=== PATIENT | male | born 1995 | race American Indian/Alaskan Native ===

== ENCOUNTER 2021-01-03 01:56 | Emergency (ER) | payer SELFPAY ==
[2021-01-03 02:23] VITALS: BP 131/79
--- NOTE | 2021-01-03 03:12 | XRay Report ---
. XR forearm LT INDICATION / CLINICAL INFORMATION: fall COMPARISON: None available. FINDINGS/IMPRESSION: No acute fracture or malalignment. No focal soft tissue abnormality. Signer Name: Jv Issa MD Signed: 01/03/2021 3:08 AM Workstation Name: [id number]
--- NOTE | 2021-01-03 04:07 | Emergency Department Report ---
ED Fall HPI - General Chief Complaint: Extremity Injury, Upper Stated Complaint: POSS BROKEN LT ELBOW Time Seen by Provider: 01/03/21 03:52 Source: patient, EMS Mode of arrival: Ambulatory - History of Present Illness MD Complaint: fall (Was playing basketball and fell on the asphalt striking his forearm/elbow down complaining of pain to the elbow region since that time. Dull throbbing pain) Loss of Consciousness: none Prolonged Down Time?: no Symptoms Prior to Fall: none Location - Extremities: Left: Elbow - Related Data Previous Rx's Medication Instructions Recorded Last Taken Type Acetaminophen/Codeine [Tylenol 1 tab PO Q6H PRN #20 tab 01/03/21 Unknown Rx /Codeine # 3 tab] Allergies Allergy/AdvReac Type Severity Reaction Status Date / Time No Known Allergies Allergy Unverified 01/03/21 02:16 ED Review of Systems ROS: Stated complaint: POSS BROKEN LT ELBOW Other details as noted in HPI Comment: All other systems reviewed and negative ED Past Medical Hx - Past Medical History Previous Medical History?: No - Surgical History Past Surgical History?: No - Medications Home Medications: Home Medications Medication Instructions Recorded Confirmed Last Taken Type Acetaminophen/Codeine [Tylenol 1 tab PO Q6H PRN #20 tab 01/03/21 Unknown Rx /Codeine # 3 tab] ED Physical Exam - General Limitations: No Limitations General appearance: alert, in no apparent distress - Head Head exam: Present: atraumatic, normocephalic - Eye Eye exam: Present: normal appearance, PERRL, EOMI Pupils: Present: normal accommodation - ENT ENT exam: Present: normal exam, mucous membranes moist - Neck Neck exam: Present: normal inspection - Respiratory Respiratory exam: Present: normal lung sounds bilaterally. Absent: respiratory distress - Cardiovascular Cardiovascular Exam: Present: regular rate, normal rhythm. Absent: systolic murmur, diastolic murmur, rubs, gallop - GI/Abdominal GI/Abdominal exam: Present: soft, normal bowel sounds - Rectal Rectal exam: Present: deferred - Extremities Exam Extremities exam: Present: normal inspection, tenderness, normal capillary refill. Absent: calf tenderness - Expanded Upper Extremity Exam Left Shoulder Exam: Present: full ROM. Absent: tenderness, swelling, abrasion, crepidus, dislocation, erythema Elbow exam: Present: tenderness, swelling. Absent: full ROM, abrasion, ecchymosis, deformity, crepidus, dislocation, erythema, effusion, pain w/ pronation/supination, tenderness over radial head Forearm Wrist exam: Present: normal inspection, full ROM Hand Wrist exam: Present: normal inspection - Back Exam Back exam: Present: normal inspection - Neurological Exam Neurological exam: Present: alert, oriented X3 - Psychiatric Psychiatric exam: Present: normal affect, normal mood - Skin Skin exam: Present: warm, dry, intact, normal color. Absent: rash ED Course Vital Signs 01/03/21 02:17 Temperature 99.1 F Pulse Rate 82 Respiratory 16 Rate Blood Pressure 131/79 O2 Sat by Pulse 100 Oximetry ED Medical Decision Making - Radiology Data Radiology results: report reviewed [address] [place] [address] XRay Report Signed Critical care attestation.: If time is entered above; I have spent that time in minutes in the direct care of this critically ill patient, excluding procedure time. ED Disposition Clinical Impression: Elbow contusion Disposition: DC-01 TO HOME OR SELFCARE Is pt being admited?: No Does the pt Need Aspirin: No Condition: Stable Instructions: Contusion, [id number], How to Use Cold Therapy, [id number], How to Use Cold Therapy, Elbow Contusion Prescriptions: Acetaminophen/Codeine [Tylenol /Codeine # 3 tab] 1 tab PO Q6H PRN #20 tab PRN Reason: Pain , Severe (7-10) Referrals: [facility] [Provider Group] - 3-5 Days
== END 2021-01-03 04:35 | disposition home or self-care (01) ==
LOC: ED 01:56
DX: S50.02XA Contusion of left elbow, initial encounter (principal); Z79.899 Other long term (current) drug therapy; W19.XXXA Unspecified fall, initial encounter; Y93.67 Activity, basketball; Y92.89 Other specified places as the place of occurrence of the external cause; Y99.8 Other external cause status